=== PATIENT | female | born 1975 | race Caucasian/White ===

== ENCOUNTER → 2018-11-19 | Outpatient (CLI) | payer OTHER ==
--- NOTE | 2018-11-19 16:19 | REP ---
LEFT ANKLE, FOUR VIEWS: HISTORY: Injury. There is a nondisplaced comminuted fracture of the distal fibula. There is no dislocation. The joint space is normal in appearance. Soft tissue swelling is present. IMPRESSION: Nondisplaced comminuted fracture of the distal fibula. Electronically Signed by Kayode Jin MD 11/19/2018 04:21 P
== END ==
LOC: M LRY 15:48
PROVIDERS: ATTEND Physician Assistant
DX: S82.832A Other fracture of upper and lower end of left fibula, initial encounter for closed fracture (principal); X58.XXXA Exposure to other specified factors, initial encounter; Y92.9 Unspecified place or not applicable

== ENCOUNTER 2018-12-24 08:29 | Day surgery (SDC) | payer OTHER ==
[~2018-12-24] VITALS: Ht 160 cm; Wt 97.5 kg
[~2018-12-24 08:29] MED LIST: LR 1,000 ML IV ONE
[2018-12-24 09:01] LABS: HEMATOCRIT 39.9 % (36.0-47.0); HEMOGLOBIN 13.1 g/dl (12.0-15.5); MEAN CORPUSCULAR HEMOGLOBIN 28.2 pg (27.0-33.0); MEAN CORPUSCULAR HGB CONC 32.8 g/dl (32.0-36.5); MEAN CORPUSCULAR VOLUME 85.8 fl (80.0-96.0); PLATELET COUNT, AUTOMATED 346 10^3/uL (150-450); RED BLOOD COUNT 4.65 10^6/uL (4.00-5.40); WHITE BLOOD COUNT 5.5 10^3/uL (4.0-10.0)
[2018-12-24 09:10] LABS: HCG, SERUM QUALITATIVE NEGATIVE (NEGATIVE)
[2018-12-24] MEDS ORDERED: dexameTHASONE 4 MG/ML 1ML VIAL (J1100) As Ordered ONE (09:15)
[2018-12-24] MEDS ORDERED: KETOROLAC 60 MG/2 ML VIAL (J1885) As Ordered ONE (09:15)
[2018-12-24] MEDS ORDERED: ONDANSETRON 4MG/2ML VIAL (J2405) As Ordered ONE ×2 (09:15→14:05)
[2018-12-24] MEDS ORDERED: ROCURONIUM BROMIDE 50 MG/5 ML VIAL As Ordered ONE (09:15)
[2018-12-24] MEDS ORDERED: LIDOCAINE 2% INJ 100 MG/5 ML SDV (FOR ANES.) As Ordered ONE (09:15)
[2018-12-24] MEDS ORDERED: PROPOFOL 200 MG/20 ML VIAL As Ordered ONE (09:15)
[2018-12-24] MEDS ORDERED: MIDAZOLAM INJ 2 MG/2 ML VIAL (J2250) As Ordered ONE (09:16)
[2018-12-24] MEDS ORDERED: fentaNYL 100 MCG/2 ML INJECTION (J3010) As Ordered ONE (09:16)
[2018-12-24] MEDS ORDERED: NEOSTIGMINE 10 MG/10 ML VIAL (J2710) As Ordered ONE (09:28)
[2018-12-24] MEDS ORDERED: GLYCOPYRROLATE INJ 0.2 MG/ML 2 ML VIAL As Ordered ONE (09:28)
[2018-12-24] MEDS ORDERED: HYDROmorphone HCL 2 MG/ML 1ML VIAL (J1170) As Ordered ONE (09:28)
[2018-12-24] MEDS ORDERED: ACETAMINOPHEN 1000MG 100ML IV BTL (OFIRMEV) (J0131 PER 10MG) As Ordered ONE (09:31)
[2018-12-24] MEDS ORDERED: BUPIVACAINE HCL 0.5% 10 ML VIAL As Ordered ONE (11:32)
[2018-12-24] MEDS ORDERED: DESFLURANE 240 ML INHALANT As Ordered ONE (12:48)
[2018-12-24] MEDS ORDERED: METOPROLOL 5 MG/5 ML VIAL As Ordered ONE (13:06)
[2018-12-24] MEDS ORDERED: LR 1,000 ML IV SCH (14:15)
[2018-12-24] MEDS ORDERED: ONDANSETRON 4MG/2ML VIAL (J2405) IV PRN (14:15)
[2018-12-24] MEDS ORDERED: fentaNYL 100 MCG/2 ML INJECTION (J3010) IV PRN (14:15)
[2018-12-24] MEDS: oxyCODONE 5MG TAB PO PRN ×2 (14:22→14:53)
[2018-12-24] MEDS ORDERED: PERCOCET 5MG/325MG TAB PO PRN (14:30)
[2018-12-24] MEDS ORDERED: METOCLOPRAMIDE INJ 10MG/2ML VIAL (J2765) As Ordered ONE (14:52)
[2018-12-24] MEDS ORDERED: KETOROLAC 30 MG/ML VIAL (J1885) IV ONE (15:00)
[2018-12-24] MEDS ORDERED: METOCLOPRAMIDE INJ 10MG/2ML VIAL (J2765) IV PRN (15:15)
--- NOTE | 2018-12-24 15:18 | RO ---
DATE OF PROCEDURE: 12/24/2018 PREPROCEDURE DIAGNOSES: Satisfied parity and abnormal uterine bleeding. POSTPROCEDURE DIAGNOSES: Satisfied parity and abnormal uterine bleeding. PROCEDURE: Paragard intrauterine device (IUD) removal. NovaSure endometrial ablation. Laparoscopic bilateral salpingectomy. SURGEON: Dr. Rob Guillaume. RETURNED GOODS REPAIRER: Dr. Juanjose Orta. ANESTHESIA: General. FLUIDS: 1 liter of lactated Ringer's. URINE OUTPUT: 400 mL. ESTIMATED BLOOD LOSS: 5 mL. COMPLICATIONS: None. DESCRIPTION OF PROCEDURE: The risks, benefits, indications and alternatives of the procedure were reviewed with the patient and informed consent was obtained. The patient was taken to the operating room where general anesthesia was obtained without difficulty. The patient was then placed in the lithotomy position using gel-padded stirrups. An exam under anesthesia was then performed and was significant for midline mobile anteverted 10-week sized uterus with good mobility. The patient was then prepped and draped in the usual sterile fashion. A surgical time out was then performed and patient's identity and planned procedure were reviewed with the operative team. A sterile speculum was then placed in the patient's vagina and the cervix was visualized. A single tooth tenaculum was then used to grasp the anterior lip of the cervix. IUD strings were seen protruding from the cervical os. The strings were then grasped and the Paragard IUD was removed intact and entirely from the uterus. The Paragard IUD was then discarded off the field. A uterine sound was then placed into the uterus and the uterus sounded to 10 cm in length total. The cervical length was measured at 5 cm and the uterine cavity length is measured at 5 cm as well. The cervix was then gently serially dilated with Dinesh dilators. The NovaSure device was then opened and the cavity length was set. The NovaSure device was then placed into the uterine cavity and deployed. The usual maneuvers were performed per the operations engineer's guidelines and a cavity width of 4 cm was obtained. The cavity integrity was assessed and found to be intact. The NovaSure device was then activated and the cavity was ablated for 95 seconds at a power of 118 page. The NovaSure device was then carefully removed from the endometrial cavity. An acorn uterine manipulator was then inserted as a means to manipulate the uterus. A Pearson catheter was then placed to drain the bladder. The patient was then re-prepped and draped and gloves and gown were changed in order to turn attention to the abdomen for a tubal ligation. Attention again was turned to the patient's abdomen. A 5 mm skin incision was then made in the inferior aspect of the umbilicus after injection of Marcaine. A 5 mm trocar and sleeve were then carefully introduced in to the peritoneal cavity under direct visualization at a 90-degree angle tenting up the abdominal wall. The regular length trocar was not adequate and a bariatric trocar was called for and opened. The bariatric trocar was then carefully inserted into the peritoneal cavity under direct visualization with a 90-degree angle tenting up the abdominal wall. Intraperitoneal placement was confirmed under direct visualization and an entry pressure was noted to be less than 5 mmHg. A pneumoperitoneum was then obtained with several liters of CO2 gas. Upon entry into the peritoneal cavity, structures immediately below the incision were inspected and found to be free of injury. A survey of the patient's abdomen and pelvis was notable for a normal gastric curve and a large amount of omental fat tissue. The uterus, fallopian tubes and ovaries were normal in appearance save for multiple paratubal cysts on the fallopian tubes. The posterior cul-de-sac was inspected and found to be normal. The anterior cul-de-sac was noted to have some mild, small endometriotic implants but otherwise was normal. Two additional 5 mm trocars, one in the left lateral aspect of the abdominal wall, and one in the right lateral aspect of the abdominal wall, were then placed under direct visualization after Marcaine was injected and skin incisions were made with a scalpel. Using the LigaSure electrocautery, the left fallopian tube was dissected away from the mesosalpinx from the fimbriated end to the isthmic portion taking care to cauterize any vasculature within the mesosalpinx. The fallopian tube was then amputated at its connection to the uterine cornua and removed from the patient's abdomen through a port. Attention was then turned to the patient's right fallopian tube which was lifted by a blunt grasper and removed in a similar fashion using the Ligasure. The right fallopian tube was then amputated and removed from the port site with a blunt grasper. All operative sites were inspected and found to be hemostatic. The gas was then turned off and all CO2 was removed from the patient's abdomen. The patient was then given three manual breaths to assist with desufflation of the abdomen. All trocar ports were removed under direct visualization and there was no bleeding seen from the trocar sites. All skin incisions were then closed with #4-0 Monocryl suture and covered with Dermabond. The uterine manipulator was then removed and there was excellent hemostasis at the cervix. All instruments were then confirmed to have been removed from the vagina. The patient's Pearson catheter was then removed. At the completion of the case, the sponge, instrument, and needle counts were correct times two. The patient tolerated the procedure well. She was cleansed and dried, taken out of the lithotomy position, awakened from anesthesia and taken to the postanesthesia care unit (PACU) in stable condition. BJ
[2018-12-24] MEDS ORDERED: PROMETHAZINE INJ 25 MG/ML VIAL (J2550) As Ordered ONE (17:12)
[2018-12-24] MEDS ORDERED: PROMETHAZINE INJ 25 MG/ML VIAL (J2550) IV SCH (17:30)
[2018-12-24 19:05] VITALS: BP 120/67
== END 2018-12-24 19:15 | disposition home or self-care (01) ==
LOC: M SDC 08:29
PROVIDERS: ATTEND Obstetrics & Gynecology
DX: Z30.2 Encounter for sterilization (principal); N93.9 Abnormal uterine and vaginal bleeding, unspecified; I10 Essential (primary) hypertension; M12.9 Arthropathy, unspecified; F41.9 Anxiety disorder, unspecified; F32.9 Major depressive disorder, single episode, unspecified; R51 Headache; R06.83 Snoring; S82.832D Other fracture of upper and lower end of left fibula, subsequent encounter for closed fracture with routine healing; E66.9 Obesity, unspecified; Z68.41 Body mass index [BMI] 40.0-44.9, adult; Z88.1 Allergy status to other antibiotic agents; Z91.048 Other nonmedicinal substance allergy status
CPT/HCPCS: 36415; 58301; 58563; 58661; 84703; 85027; 88302; J0131; J1100; J1170; J1885; J2250; J2405; J2710; J2765; J3010

== ENCOUNTER 2019-05-12 13:53 | Emergency (ER) | payer OTHER ==
[~2019-05-12] VITALS: Ht 160 cm; Wt 99.1 kg
[2019-05-12] MEDS ORDERED: OXYC1TAB23 PO (14:11)
--- NOTE | 2019-05-12 15:17 | REP ---
CT HEAD WITHOUT CONTRAST: HISTORY: Headache. There is no intraparenchymal hemorrhage, mass or midline shift. The ventricular system is normal in appearance. There is no extracerebral collection. The visualized sinuses are clear. IMPRESSION: There is no intracranial lesion. Electronically Signed by Kayode Jin MD 05/12/2019 03:28 P
[2019-05-12] MEDS ORDERED: ACETAMINOPHEN 500 MG TAB PO ONE (15:45)
[2019-05-12] MEDS ORDERED: METOCLOPRAMIDE INJ 10MG/2ML VIAL (J2765) IV ONE (15:45)
[2019-05-12] MEDS ORDERED: KETOROLAC 30 MG/ML VIAL (J1885) IV ONE (15:45)
[2019-05-12] MEDS ORDERED: NS 1,000 ML IV ONE (15:45)
[2019-05-12] MEDS ORDERED: REGL10TA6 PO (16:56)
[2019-05-12] MEDS ORDERED: IBUP-1022 PO (16:57)
[2019-05-12 17:39] VITALS: BP 117/60
== END 2019-05-12 17:41 | disposition home or self-care (01) ==
LOC: M ED 13:53
DX: R51 Headache (principal); F41.9 Anxiety disorder, unspecified; F32.9 Major depressive disorder, single episode, unspecified; Z91.89 Other specified personal risk factors, not elsewhere classified; Z88.1 Allergy status to other antibiotic agents
CPT/HCPCS: 70450; 84702; 96361; 96374; 96375; 99284; J1885; J2765

== ENCOUNTER → 2020-01-12 | Outpatient (CLI) | payer OTHER ==
[~2020-01-12] MED LIST changes: +IBUP-1022 PO; -LR 1,000 ML IV ONE; +OXYC1TAB23 PO; +REGL10TA6 PO
--- NOTE | 2020-01-12 13:35 | REP ---
DIGITAL DIAGNOSTIC BILATERAL MAMMOGRAPHY WITH CAD, 3D TOMOGRAPHY, AND FOCUSED LEFT BREAST SONOGRAPHY. HISTORY: Painful tender area left medial breast. The patient denies palpable lump. No comparison imaging. MAMMOGRAPHIC FINDINGS: Routine views of the left breast are augmented by magnified focal spot compression images and 3D tomography. A skin marker is affixed to the skin at the site of the palpable lump which projects inferiorly and medially. Breast parenchyma is predominately fat replaced. No dominant density is seen at the site of the palpable lump or elsewhere. No microcalcification, architectural distortion, or worrisome skin change is seen on either side mammographically. SONOGRAPHIC FINDINGS: Focused left breast sonography is performed from 8-o'clock to 10- o'clock position in the left breast through the area of palpable abnormality. Normal fibroglandular background echotexture is seen. No cyst or mass is observed. No acoustic shadowing is seen. No architectural distortion is noted. IMPRESSION: BIRADS 1: BI-RADS/ACR category 1 mammogram. Negative Mammogram. BIRADS category one negative findings. Clinical followup is advised. This mammogram was interpreted with the aid of an FDA-approved computer-aided detection system. The patient states she had a clinical breast exam in January 26, 2020 The patient letter being requested is M2 This patient's estimated Tyrer-Cuzick lifetime risk assessment for breast cancer is 10.4 %.
== END ==
LOC: M WHC 09:16
PROVIDERS: ATTEND Obstetrics & Gynecology
DX: N63.22 Unspecified lump in the left breast, upper inner quadrant (principal)
CPT/HCPCS: 76642; 77066; G0279

== ENCOUNTER → 2021-04-15 | Outpatient (CLI) | payer OTHER ==
--- NOTE | 2021-04-18 09:03 | ECHO ---
ECHOCARDIOGRAM DATE OF PROCEDURE: 04/15/2021 Age: 45 Gender: Female Height: Weight: REFERRING PHYSICIAN: Leroy Gary M.D. PATIENT LOCATION: Outpatient. REASON FOR STUDY: Cardiac murmur. 2D MEASUREMENTS: IVS 1.0 cm LV 4.4 cm LVPW 1.1 cm LA 3.4 cm Aorta 2.9 cm DOPPLER MEASUREMENT Peak velocity across the LVOT 1.1 m/s Mitral E 0.6 Mitral A 0.6 with a ratio of 1.0 2D COMMENTS: 1. Normal left ventricular size, wall thickness, and normal global left ventricular systolic function. The estimated left ventricular systolic ejection fraction is 65% to 70%. 2. Normal left atrium. Normal right atrium and right ventricle. 3. The atrial septum appeared to be normal without evidence of defect or shunt. 4. Normal aortic root. 5. No pericardial effusion seen. 6. The aortic valve, the mitral valve, and the tricuspid valve appear to be normal. The pulmonic valve and proximal pulmonary artery branches were not well visualized. 7. The inferior vena cava was not visualized. DOPPLER: No significant valvular abnormalities detected, but trace mitral regurgitation. IMPRESSION: 1. Normal global left ventricular systolic function. 2. Trace mitral regurgitation.
== END ==
LOC: M CARPUL 08:48
PROVIDERS: ATTEND Family Medicine
DX: R01.1 Cardiac murmur, unspecified (principal)

== ENCOUNTER 2021-07-04 10:17 | Day surgery (SDC) | payer OTHER ==
[~2021-07-04] VITALS: Ht 160 cm; Wt 108.6 kg
[~2021-07-04 10:17] MED LIST changes: +NS 1,000 ML IV ONE
[2021-07-04] MEDS ORDERED: fentaNYL 100 MCG/2 ML INJECTION (J3010) As Ordered ONE (10:54)
[2021-07-04] MEDS ORDERED: LIDOCAINE 2% 100MG/5ML SDV (FOR ANES.) As Ordered ONE (10:54)
[2021-07-04] MEDS ORDERED: propofoL 200 MG/20 ML VIAL As Ordered ONE (10:54)
--- NOTE | 2021-07-04 11:03 | ROOR ---
Patient Name: Aldo Nam Procedure Date: 07/04/2021 10:40 AM Date of : 1975 Age: 45 Room: [facility] Gender: Female Note Status: Finalized Procedure: Upper Endoscopy + Biopsies + Balloon Dilatation Indications: Dysphagia, Heartburn Providers: Andrew Adorno MD Referring MD: Leroy Gary Md Requesting Provider: Medicines: Monitored Anesthesia Care Complications: No immediate complications. Procedure: Pre-Anesthesia Assessment: - The heart rate, respiratory rate, oxygen saturations, blood pressure, adequacy of pulmonary ventilation, and response to care were monitored throughout the procedure. The Endoscope was introduced through the mouth, and advanced to the second part of duodenum. The upper GI endoscopy was accomplished without difficulty. The patient tolerated the procedure well. Findings: The Z-line was regular and was found 35 cm from the incisors. A TTS dilator was passed through the scope. Dilation with a 15-16.5-18 mm balloon dilator was performed to 18 mm. Mucosal changes including ringed esophagus were found in the entire esophagus. Biopsies were taken with a cold forceps for histology. No other significant abnormalities were identified in a careful examination of the stomach. The exam of the duodenum was otherwise normal. Impression: - Z-line regular, 35 cm from the incisors. Dilated. - Esophageal mucosal changes suggestive of eosinophilic esophagitis. Biopsied. - The examination was otherwise normal. Recommendation: - Await pathology results. - The patient will be observed post-procedure, until all discharge criteria are met. - Discharge patient to home. - Resume previous diet. - Follow an antireflux regimen. - Continue present medications. - Await pathology results. - Telephone GI clinic for pathology results in 1 week. - Repeat upper endoscopy for surveillance based on pathology results. - Return to referring physician. - The findings and recommendations were discussed with the patient. Procedure Code(s): --- Professional --- 02853, Esophagogastroduodenoscopy, flexible, transoral; with transendoscopic balloon dilation of esophagus (less than 30 mm diameter) Diagnosis Code(s): --- Professional --- K22.8, Other specified diseases of esophagus R13.10, Dysphagia, unspecified R12, Heartburn CPT copyright 2019 [employer]. All rights reserved. The codes documented in this report are preliminary and upon stucco mason review may be revised to meet current compliance requirements. Andrew Adorno MD Andrew Adorno MD 07/04/2021 11:02:59 AM Electronically signed by Andrew Adorno MD Number of Addenda: 0 Note Initiated On: 07/04/2021 10:40 AM Estimated Blood Loss: Estimated blood loss: none.
[2021-07-04 11:26] VITALS: BP 124/68
== END 2021-07-04 11:28 | disposition home or self-care (01) ==
LOC: M OPP 10:17
PROVIDERS: ATTEND Internal Medicine Gastroenterology
DX: K22.8 Other specified diseases of esophagus (principal); R13.10 Dysphagia, unspecified; R12 Heartburn; Z88.1 Allergy status to other antibiotic agents; Z91.048 Other nonmedicinal substance allergy status
CPT/HCPCS: 43239; 88305; J3010

== ENCOUNTER 2023-08-23 19:55 | Emergency (ER) | payer OTHER ==
[~2023-08-23] VITALS: Ht 160 cm; Wt 99.1 kg
[~2023-08-23 19:55] MED LIST changes: -NS 1,000 ML IV ONE
[2023-08-23 19:56] VITALS: BP 150/83; O2SAT 98
[2023-08-23 20:48] LABS: BASO % 0.2 % (0.0-1.0); HEMATOCRIT 42.7 % (36.0-47.0); HEMOGLOBIN 15.4 g/dl (12.0-15.5); LYMPH # 0.6 10^3/uL (1.5-5.0); LYMPH % 6.6 % (24.0-44.0); MEAN CORPUSCULAR HGB CONC 36.1 g/dl (32.0-36.5); MEAN CORPUSCULAR VOLUME 86.1 fl (80.0-96.0); MONO # 0.2 10^3/uL (0.0-0.8); MONO % 2.1 % (2.0-8.0); NEUTROPHILS # 7.8 10^3/uL (1.5-8.5); NEUTROPHILS % 90.6 % (36.0-66.0); PLATELET COUNT, AUTOMATED 268 10^3/uL (150-450); RED BLOOD COUNT 4.96 10^6/uL (4.00-5.40); WHITE BLOOD COUNT 8.6 10^3/uL (4.0-10.0)
[2023-08-23 20:58] LABS: RSV AMPLIFICATION NEGATIVE (NEGATIVE)
[2023-08-23 21:22] LABS: LIPASE 30 U/L (12-53)
[2023-08-23 21:25] LABS: ALBUMIN 3.9 G/DL (3.2-5.2); ALKALINE PHOSPHATASE 78 U/L (46-116); ALT/SGPT 29 U/L (7.0-40); AST/SGOT 16 U/L (<34); BILIRUBIN,DIRECT 0.3 MG/DL (<0.4); BILIRUBIN,TOTAL 0.7 MG/DL (0.3-1.2); BLOOD UREA NITROGEN 9 MG/DL (9-23); CALCIUM LEVEL 8.7 MG/DL (8.5-10.1); CARBON DIOXIDE LEVEL 28 MMOL/L (20-31); CHLORIDE LEVEL 101 MMOL/L (98-107); CREATININE FOR GFR 0.71 MG/DL (0.55-1.30); GLOMERULAR FILTRATION RATE > 60.0 (>51); GLUCOSE, FASTING 128 MG/DL (60-100); POTASSIUM SERUM 3.9 MMOL/L (3.5-5.1); SODIUM LEVEL 138 MMOL/L (136-145); TOTAL PROTEIN 7.2 G/DL (5.7-8.2)
[2023-08-23] MEDS ORDERED: SERT50TA29 PO (22:47)
[2023-08-23] MEDS ORDERED: TRAZ-252 PO (22:47)
[2023-08-23] MEDS ORDERED: HOME MED LIST COMPLETE! XX SCH (22:50)
[2023-08-23] MEDS ORDERED: NS 1,000 ML IV ONE (23:20)
[2023-08-23] MEDS ORDERED: KETOROLAC 30 MG/ML 1ML VIAL IV ONE (23:20)
[2023-08-23] MEDS ORDERED: ONDANSETRON 4MG ORAL DISINTEGRATING TAB PO ONE (23:20)
[2023-08-23] MEDS ORDERED: ACETAMINOPHEN 325 MG TAB PO ONE (23:20)
[2023-08-24 01:37] VITALS: TEMP 99.9
[2023-08-24] MEDS ORDERED: OSEL75CA PO (02:19)
== END 2023-08-24 02:32 | disposition home or self-care (01) ==
LOC: M ED 19:55
DX: J09.X2 Influenza due to identified novel influenza A virus with other respiratory manifestations (principal); F41.9 Anxiety disorder, unspecified; F32.A Depression, unspecified; Z88.1 Allergy status to other antibiotic agents; Z79.899 Other long term (current) drug therapy
CPT/HCPCS: 80048; 80076; 83690; 85025; 87631; 96374; 99284; J1885

== ENCOUNTER 2024-05-16 19:41 | Emergency (ER) | payer OTHER ==
[~2024-05-16] VITALS: Ht 160 cm; Wt 97.3 kg
[~2024-05-16 19:41] MED LIST changes: +OSEL75CA PO; +SERT50TA29 PO; +TRAZ-252 PO
[2024-05-16 21:57] LABS: BASO % 0.6 % (0.0-1.0); EOS # 0.2 10^3/uL (0.0-0.5); EOS % 2.4 % (0.0-3.0); HEMATOCRIT 43.1 % (36.0-47.0); LYMPH # 2.9 10^3/uL (1.5-5.0); MEAN CORPUSCULAR HEMOGLOBIN 30.8 pg (27.0-33.0); MEAN CORPUSCULAR HGB CONC 34.8 g/dl (32.0-36.5); MEAN CORPUSCULAR VOLUME 88.5 fl (80.0-96.0); MONO # 0.3 10^3/uL (0.0-0.8); MONO % 4.4 % (2.0-8.0); NEUTROPHILS # 3.2 10^3/uL (1.5-8.5); NEUTROPHILS % 48.3 % (36.0-66.0); PLATELET COUNT, AUTOMATED 293 10^3/uL (150-450); RED BLOOD COUNT 4.87 10^6/uL (4.00-5.40); WHITE BLOOD COUNT 6.7 10^3/uL (4.0-10.0)
[2024-05-16 22:03] LABS: ERYTHROCYTE SEDIMENTATION RATE 16 mm/hr (0-30)
[2024-05-16 22:28] LABS: BLOOD UREA NITROGEN 13 MG/DL (9-23); CALCIUM LEVEL 8.9 MG/DL (8.5-10.1); CARBON DIOXIDE LEVEL 27 MMOL/L (20-31); CHLORIDE LEVEL 107 MMOL/L (98-107); CREATININE FOR GFR 0.86 MG/DL (0.55-1.30); GLOMERULAR FILTRATION RATE > 60.0 (>51); GLUCOSE, FASTING 109 MG/DL (60-100); SODIUM LEVEL 138 MMOL/L (136-145)
[2024-05-16 23:33] VITALS: BP 152/88; TEMP 97.8; O2SAT 98
[2024-05-17] MEDS: DALBAVANCIN 1,500 MG in D5W 250 ML IV ONE (04:31)
== END 2024-05-17 06:33 | disposition home or self-care (01) ==
LOC: M ED 19:41
DX: L03.115 Cellulitis of right lower limb (principal); Z86.19 Personal history of other infectious and parasitic diseases; Z79.899 Other long term (current) drug therapy; Z88.1 Allergy status to other antibiotic agents; Z91.89 Other specified personal risk factors, not elsewhere classified
CPT/HCPCS: 80048; 85025; 85652; 86140; 96365; 96366; 99283; J0875